=== PATIENT | female | born 1950 | race Caucasian/White ===

== ENCOUNTER → 2022-02-16 11:37 | Outpatient (BNVA) | payer MEDICARE, SELFPAY | PROVIDERS: Family Provider Registered Nurse; PCP Family Medicine; Visit Provider Family Medicine | DX: E11.8 Type 2 diabetes mellitus with unspecified complications (principal) | CPT/HCPCS: 83036 ==

== ENCOUNTER → 2022-06-07 07:51 | Outpatient (BNVA) | payer MEDICARE, SELFPAY | PROVIDERS: Family Provider Registered Nurse; PCP Family Medicine; Visit Provider Family Medicine | DX: E11.9 Type 2 diabetes mellitus without complications (principal); Z51.81 Encounter for therapeutic drug level monitoring; R25.2 Cramp and spasm; Z13.220 Encounter for screening for lipoid disorders | CPT/HCPCS: 80053; 80061; 83036; 83735; 85025 ==

== ENCOUNTER → 2022-10-07 10:46 | Outpatient (BNVA) | payer MEDICARE, SELFPAY | PROVIDERS: Family Provider Registered Nurse; PCP Family Medicine; Visit Provider Family Medicine | DX: Z51.81 Encounter for therapeutic drug level monitoring (principal); E11.9 Type 2 diabetes mellitus without complications; I10 Essential (primary) hypertension; M26.609 Unspecified temporomandibular joint disorder, unspecified side; Z13.220 Encounter for screening for lipoid disorders | CPT/HCPCS: 80053; 80061; 83036; 85025 ==

== ENCOUNTER → 2023-01-10 08:00 | Outpatient (BNVA) | payer MEDICARE, SELFPAY | PROVIDERS: Family Provider Registered Nurse; PCP Family Medicine; Visit Provider Podiatrist Foot & Ankle Surgery | DX: I73.9 Peripheral vascular disease, unspecified (principal); L84 Corns and callosities; E11.9 Type 2 diabetes mellitus without complications; B35.1 Tinea unguium; M20.41 Other hammer toe(s) (acquired), right foot; M20.42 Other hammer toe(s) (acquired), left foot; Z79.4 Long term (current) use of insulin | CPT/HCPCS: 11056; 99204 ==

== ENCOUNTER → 2023-01-13 09:50 | Outpatient (BNVA) | payer MEDICARE, SELFPAY | PROVIDERS: Family Provider Registered Nurse; PCP Family Medicine; Visit Provider Family Medicine | DX: E11.9 Type 2 diabetes mellitus without complications (principal); Z51.81 Encounter for therapeutic drug level monitoring; E78.5 Hyperlipidemia, unspecified; I10 Essential (primary) hypertension; R60.9 Edema, unspecified; Z63.0 Problems in relationship with spouse or partner | CPT/HCPCS: 80053; 83036; 83735; 85025 ==

== ENCOUNTER → 2023-02-28 11:28 | Outpatient (BNVA) | payer MEDICARE, SELFPAY | PROVIDERS: Family Provider Registered Nurse; PCP Family Medicine; Visit Provider Podiatrist Foot & Ankle Surgery | DX: M21.611 Bunion of right foot (principal); M21.612 Bunion of left foot; M20.41 Other hammer toe(s) (acquired), right foot; M20.42 Other hammer toe(s) (acquired), left foot; E11.9 Type 2 diabetes mellitus without complications; I73.9 Peripheral vascular disease, unspecified; Z79.4 Long term (current) use of insulin | CPT/HCPCS: 99212 ==

== ENCOUNTER → 2023-05-12 09:24 | Outpatient (BNVA) | payer MEDICARE, SELFPAY | PROVIDERS: Family Provider Registered Nurse; PCP Family Medicine; Visit Provider Family Medicine | DX: Z51.81 Encounter for therapeutic drug level monitoring (principal); E78.5 Hyperlipidemia, unspecified; E55.9 Vitamin D deficiency, unspecified; E53.8 Deficiency of other specified B group vitamins; I10 Essential (primary) hypertension; E11.9 Type 2 diabetes mellitus without complications; Z13.220 Encounter for screening for lipoid disorders; R26.89 Other abnormalities of gait and mobility | CPT/HCPCS: 80053; 80061; 82306; 82607; 85025 ==

== ENCOUNTER → 2023-05-16 08:08 | Outpatient (BNVA) | payer MEDICARE, SELFPAY | PROVIDERS: Family Provider Registered Nurse; PCP Family Medicine; Visit Provider Podiatrist Foot & Ankle Surgery | DX: M21.611 Bunion of right foot (principal); M21.612 Bunion of left foot; M20.41 Other hammer toe(s) (acquired), right foot; M20.42 Other hammer toe(s) (acquired), left foot; E11.9 Type 2 diabetes mellitus without complications; I73.9 Peripheral vascular disease, unspecified; L60.9 Nail disorder, unspecified; Z79.4 Long term (current) use of insulin | CPT/HCPCS: 11721 ==

== ENCOUNTER → 2023-06-10 08:12 | Outpatient (BNVA) | payer MEDICARE, SELFPAY | PROVIDERS: Family Provider Registered Nurse; PCP Family Medicine; Visit Provider Family Medicine | DX: E11.9 Type 2 diabetes mellitus without complications (principal) | CPT/HCPCS: 83036 ==

== ENCOUNTER → 2023-07-18 07:46 | Outpatient (BNVA) | payer MEDICARE, SELFPAY | PROVIDERS: Family Provider Registered Nurse; PCP Family Medicine; Visit Provider Podiatrist Foot & Ankle Surgery | DX: E11.8 Type 2 diabetes mellitus with unspecified complications (principal); M21.611 Bunion of right foot; M21.612 Bunion of left foot; M20.41 Other hammer toe(s) (acquired), right foot; M20.42 Other hammer toe(s) (acquired), left foot; I73.9 Peripheral vascular disease, unspecified; L60.3 Nail dystrophy; L84 Corns and callosities; Z79.4 Long term (current) use of insulin | CPT/HCPCS: 11056; 11721 ==

== ENCOUNTER → 2023-07-22 09:37 | Outpatient (BNVA) | payer MEDICARE, SELFPAY | PROVIDERS: Family Provider Registered Nurse; PCP Family Medicine; Visit Provider Family Medicine | DX: E03.9 Hypothyroidism, unspecified (principal); E11.9 Type 2 diabetes mellitus without complications | CPT/HCPCS: 84439; 84443; 84681 ==

== ENCOUNTER → 2023-10-31 12:15 | Outpatient (BNVA) | payer MEDICARE, SELFPAY | PROVIDERS: Family Provider Registered Nurse; PCP Family Medicine; Visit Provider Podiatrist Foot & Ankle Surgery | DX: B35.1 Tinea unguium (principal); E11.9 Type 2 diabetes mellitus without complications; I73.9 Peripheral vascular disease, unspecified; Z79.4 Long term (current) use of insulin | CPT/HCPCS: 11721 ==

== ENCOUNTER 2023-11-23 13:38 | Outpatient (CLI) | payer MEDICARE, SELFPAY ==
--- NOTE | 2023-11-23 13:42 | XR_ITS ---
WS: [id number] Examination: XR hip LT 2-3V wo/w pel* [id number] Reason for Exam: Fall, left hip pain Date: November 23, 2023 Comparison: None. Findings: The bone density is maintained. There is no destruction. There is no fracture or dislocation. The chong nt space is maintained Impression: No displaced fractures identified.
--- NOTE | 2023-11-23 13:42 | XR_ITS ---
WS: [id number] Examination: XR lumbar spine 2-3V* [id number] Reason for Exam: Lower back pain, fall Date: November 23, 2023 Comparison: None. Findings: The pedicles and the bone density are intact There is no dominant anterior wedging or compression. There is no subluxation There are dominant degenerative changes at L5-S1 with the space loss along with anterior and posterio r osteophytes. Otherwise mild spondylosis is noted Impression: There are degenerative changes of the lumbar disc which is dominant at L5-S1.
== END 2023-11-23 13:39 | disposition home or self-care (01) ==
LOC: RAD 13:40
PROVIDERS: Family Provider Registered Nurse; PCP Family Medicine; Visit Provider Family Medicine
DX: M25.552 Pain in left hip (principal); M54.50 Low back pain, unspecified; M47.816 Spondylosis without myelopathy or radiculopathy, lumbar region
CPT/HCPCS: 72100; 73502

== ENCOUNTER → 2023-12-15 07:59 | Outpatient (BNVA) | payer MEDICARE, SELFPAY | PROVIDERS: Family Provider Registered Nurse; PCP Family Medicine; Visit Provider Family Medicine | DX: E11.9 Type 2 diabetes mellitus without complications (principal); E55.9 Vitamin D deficiency, unspecified | CPT/HCPCS: 80053; 80061; 82306; 83036; 85025 ==

== ENCOUNTER 2023-12-30 07:29 | Outpatient (CLI) | payer MEDICARE, SELFPAY ==
--- NOTE | 2023-12-30 07:45 | US_ITS ---
WS: [id number] RIGHT UPPER QUADRANT ULTRASOUND HISTORY: Right upper quadrant pain - Please do a RUQ US COMPARISON: None available. Liver: 15.3 cm in length. Normal size liver. Echogenic liver with increased attenuation. No mass iden tified. No bile duct dilatation. Portal Vein: Normal hepatopetal flow with monophasic waveform. Gallbladder: Prior cholecystectomy. CBD: 0.3 cm Pancreas: Poorly visualized but echogenic pancreas. Right kidney: 10.6 cm in length. Cortical cyst upper pole measures 1.4 x 1.4 x 1.0 cm. No solid mass. Aorta and IVC: Unremarkable abdominal aorta and IVC. No ascites. US/US abdomen limited [id number] IMPRESSION: 1. Status post cholecystectomy. 2. No bile duct dilatation. 3. Normal size liver with changes of hepatic steatosis. 4. Simple cyst upper pole RIGHT kidney. Cyst has very slightly increased in si ze since the prior ultrasound from 2010.
== END 2023-12-30 07:30 | disposition home or self-care (01) ==
LOC: RAD 07:29
PROVIDERS: Family Provider Registered Nurse; PCP Family Medicine; Visit Provider Family Medicine
DX: N28.1 Cyst of kidney, acquired (principal); R10.11 Right upper quadrant pain; G89.29 Other chronic pain
CPT/HCPCS: 76705

== ENCOUNTER → 2024-01-03 13:20 | Outpatient (BNVA) | payer MEDICARE, SELFPAY | PROVIDERS: Family Provider Registered Nurse; PCP Family Medicine; Visit Provider Podiatrist Foot & Ankle Surgery | DX: B35.1 Tinea unguium (principal); R60.9 Edema, unspecified; I73.9 Peripheral vascular disease, unspecified; E11.69 Type 2 diabetes mellitus with other specified complication; Z79.4 Long term (current) use of insulin | CPT/HCPCS: 11721 ==

== ENCOUNTER 2024-02-07 11:39 | Emergency (ER) | payer MEDICARE, SELFPAY ==
[2024-02-07 11:52] VITALS: BP 257/114; PULSE 89; TEMP 36.7; O2SAT 91; BMI 26.5
--- NOTE | 2024-02-07 11:52 | ECG_ITS ---
[facility] Test Date: 2024-02-07 Pat Name: Josey Flores Department: Room: Gender: Female Blood [employer] Credit Clerk: : [id number] Requested By: Jeramie Chambers Order Number: [id number] Reading MD: Travis Armijo M.D. Measurements Intervals [place] Rate: 87 P: 31 VA: 139 QRS: 24 QRSD: 87 T: 72 QT: 374 QTc: 452 Interpretive Statements SINUS RHYTHM NONSPECIFIC T-WAVE ABNORMALITY No previous ECG available for comparison Electronically Signed On 02-10-2024 13:22:31 CDT by Travis Armijo M.D. [id number]
--- NOTE | 2024-02-07 11:53 | XRR_ITS ---
PROCEDURE INFORMATION: Exam: XR Right Humerus Exam date and time: 02/07/2024 12:08 PM Age: 73 years old Clinical indication: Injury or trauma; Fall; Blunt trauma (contusions or hematomas); Arm, upper; Right TECHNIQUE: Imaging protocol: Radiologic exam of the right humerus. Views: 2 or more views. COMPARISON: CR XR shoulder RT min 2V* [id number] 02/07/2024 12:05 PM FINDINGS: Bones/joints: Comminuted minimally displaced fracture of the humeral head. Interval reduction of previously seen probable anterior dislocation. No additional fractures are seen. Soft tissues: Normal. XR/[place] [id number] IMPRESSION: 1. Comminuted minimally displaced fracture of the humeral head. 2. Interval reduction of previously seen probable anterior dislocation.
--- NOTE | 2024-02-07 11:53 | XRR_ITS ---
PROCEDURE INFORMATION: Exam: XR Right Shoulder Exam date and time: 02/07/2024 12:05 PM Age: 73 years old Clinical indication: Injury or trauma; Fall; Blunt trauma (contusions or hematomas); Shoulder; Right TECHNIQUE: Imaging protocol: Radiologic exam of the right shoulder. Views: 2 or more views. COMPARISON: CR XR chest 1V [id number] 06/17/2018 10:41 AM FINDINGS: Bones/joints: Minimally displaced comminuted fracture of the humeral head with probable anterior dislocation. No additional fractures are seen. Soft tissues: Normal. XR/XR shoulder RT min 2V* [id number] IMPRESSION: Minimally displaced comminuted fracture of the humeral head with probable anterior dislocation.
--- NOTE | 2024-02-07 11:54 | ED_ITS ---
HPI - Extremity Injury (Upper) 2 General: Chief Complaint: Extremity Injury, Upper Stated Complaint: Fall Time Seen by Provider: 02/07/24 11:42 Source: patient Mode of arrival: ambulatory History of Present Illness: 73-year-old female presents to the emerg ency room with complaints of right upper arm and shoulder pain. She is a resident [facility] she had a mechanical ground-level fall and is complaining of pain in that area. She cannot really describe to me how she landed although she denies landing on an outstretched arm. She did not strike her head did not lose consciousness she is diabetic EMS that her blood sugar at 118. She did take her regular insulin this morning. She denies any other injury. MD complaint: injury to: right, shoulder and arm Other Extremity Injury: Right: arm and shoulder Handedness: right Place: other (long-term) Relieving factors: none Exacerbating factors: none Associated symptoms: Denies crepitus, foreign body sensation, neck pain, numbness or weakness in extremities Treatments prior to arrival: other (Right arm sling/shoulder immobilizer) Review of Systems 2 Const: Denies: fever(s) or chills Card: Denies: chest pain Resp: Denies: dyspnea GI: Denies: abdominal pain : Denies: dysuria, urinary frequency or urinary urgency Musc: Reports: joint pain (Right shoulder); Denies: neck pain Skin/Breast: Denies: rash Neuro: Denies: weakness in extremities PFSH ED 2 PFSH: Medical History Hypertension Diabetes mellitus Surgical History History of right knee surgery Hx of rotator cuff surgery Left History of cholecystectomy H/O bilateral oophorectomy H/O: hysterectomy With BLO and removal of cervix Family History Mother Colon cancer Hypertension Sister Colon cancer Hypertension Father Stroke CAD (coronary artery disease) Brother CAD (coronary artery disease) Social History Smoking and tobacco/nicotine status: never used tobacco/nicotine Alcohol intake: current Alcohol intake frequency: holidays/special occasions only Substance/Drug Use: never Marital status: Physical Exam 2 Const: GENERAL APPEARANCE: cooperative and comfortable O RIENTATION/CONSCIOUSNESS: Yes awake, Yes oriented to person, Yes oriented to place and Yes oriented to time HENMT: COMMON NORMALS: normocephalic, atraumatic and hearing grossly normal bilaterally HEAD & SCALP: normocephalic and atraumatic Resp: COMMON NORMALS: normal respiratory effort, No retractions, No use of accessory muscles and clear to auscultation bilaterally AUSCULTATION: clear to auscultation bilaterally Cardio: COMMON NORMALS: regular rate, regular rhythm and No murmurs present (Cardio) RATE: regular rate RHYTHM: regular rhythm GI: COMMON NORMALS: Soft to palpation and No hepatosplenomegaly present A USCULTATION: Yes normoactive bowel sounds PALPATION: Yes Soft to palpation, No Tenderness to palpation present (GI), No Guarding due to palpation present (GI) and Yes No hepatosplenomegaly present Extremity: OTHER: Examination extremities patient has no pain or discomfort with the lower extremities and the left upper extremity. No pain with palpation or range of motion there right elbow or wrist neurovascularly intact pain discomfort with palpation along the right clavicle and shoulder and upper humerus Limited exam due to pain pending x-rays Neuro: SENSORIUM/ORIENTATION: Yes oriented to person, Yes oriented to place and Yes oriented to time Skin: COMMON NORMALS: no rashes or lesions noted GENERAL SKIN EXAM: no rashes or lesions noted Course 2 Vital Signs: Vital signs: Vital Signs Temperature 98.0 F 02/07/24 11:52 Pulse Rate 80 02/07/24 14:13 Respiratory Rate 17 02/07/24 13:42 Blood Pressure 178/84 02/07/24 14:13 Pulse Oximetry 94 02/07/24 14:13 Oxygen Delivery Me thod Room Air 02/07/24 14:13 MDM - Extremity Injury (Upper) Medical Decision Making Humeral head fracture. On initial plain films is concerned about the possibility of anterior dislocation with a fracture. Reviewed both the shoulder and humerus fractures on 1 it appears there is a dislocation on the other it appears to be in good position CT was done which confirmed adequate positioning with the fracture and there is no dislocation. Will discharge patient home with pain medications and sling and set her up to see if orthopedics and follow-up Medical Records I reviewed the patient's medical records. Lab Data I reviewed the patient's lab results. 02/07/24 12:22 02/07/24 12:22 Radiology Impressions Humerus X-Ray 02/07/24 11:53 IMPRESSION: 1. Comminuted minimally displaced fracture of the humeral head. 2. Interval reduction of previously seen probable anterior dislocation. Shoulder X-Ray 02/07/24 11:53 IMPRESSION: Minimally displaced comminuted fracture of the humeral head with probable anterior dislocation. Shoulder CT 02/07/24 13:17 IMPRESSION: 1. Comminuted humeral head and neck fracture. 2. Inferior subluxation due to hemarthrosis but no anterior displacement of the humeral head. Laboratory Results WBC 8.35 10^3/uL (3.29-11.43) 02/07/24 12:22 RBC 4.34 10^6/uL (3.85-5.65) 02/07/24 12:22 Hgb 13.90 g/dL (11.27-16.99) 02/07/24 12:22 Hct 42.6 % (36-47) 02/07/24 12:22 MCV 98.2 fl (85-98) H 02/07/24 12:22 MCH 32.0 pg (27-33) 02/07/24 12:22 MCHC 32.6 g/dL (30-55) 02/07/24 12:22 RDW 13.1 % (12.1-15.1) 02/07/24 12:22 Plt Count 252 10^3/cmm (157-399) 02/07/24 12:22 MPV 10.6 fL (7.4-10.4) H 02/07/24 12:22 Neut % (Auto) 81.9 % 02/07/24 12:22 Lymph % (Auto) 10.8 % 02/07/24 12:22 [place] % (Auto) 5.6 % 02/07/24 12:22 Eos % (Auto) 0.7 % 02/07/24 12:22 Baso % (Auto) 0.4 % 02/07/24 12:22 Neut # (Auto) 6.84 10^3/uL (1.8-7.7) 02/07/24 12:22 Lymph # (Auto) 0.9 10^3/uL (0.8-4.8) 02/07/24 12:22 [place] # (Auto) 0.5 10^3/uL (0.2-0.9) 02/07/24 12:22 Eos # (Auto) 0.1 10^3/uL (0.0-0.8) 02/07/24 12:22 Baso # (Auto) 0.0 10^3/uL (0.0-0.1) 02/07/24 12:22 Nucleated RBC % (auto) 0 % 02/07/24 12:22 Nucleated RBCs # 0.0 /100WBC 02/07/24 12:22 Sodium 144 mmol/L (136-145) 02/07/24 12:22 Potassium 4.0 mmol/L (3.5-5.1) 02/07/24 12:22 Chloride 109 mmol/L (98-107) H 02/07/24 12:22 Carbon Dioxide 22 mmol/L (22-29) 02/07/24 12:22 Anion Gap 17.0 (5-19) 02/07/24 12:22 BUN 26 mg/dL (8-23) H 02/07/24 12:22 Creatinine 1.1 mg/dL (0.5-0.9) H 02/07/24 12:22 GFR Calculation Not Reportable 02/07/24 12:22 Glucose 110 mg/dL (65-115) 02/07/24 12:22 Calculated Osmolality 303 mOsm/kg (285-295) H 02/07/24 12:22 Calcium 9.3 mg/dL (8.5-10.5) 02/07/24 12:22 Total Bilirubin 0.3 mg/dL (0.15-1.2) 02/07/24 12:22 AST 14 U/L (0-32) 02/07/24 12:22 ALT 13 U/L (0-33) 02/07/24 12:22 Alkaline Phosphatase 75 U/L (35-105) 02/07/24 12:22 Total Protein 7.9 g/dL (6.6-8.7) 02/07/24 12:22 Albumin 4.1 g/dL (3.5-5.2) 02/07/24 12:22 Globulin 3.8 g/dL (1.3-4.6) 02/07/24 12:22 All radiology interpretation(s) finalized by discharge Discharge Plan Discharge Patient Disposition: Home Clinical Impression: Fracture of humeral head, right, closed, HTN (hypertension) Condition: Stable Prescriptions: New hydrocodone-acetaminophen 5-325 mg tablet 1 tab PO Q6H PRN (Reason: pain) Qty: 20 0RF amlodipine 10 mg tablet 10 mg PO DAILY Qty: 30 0RF No Action (DME) Manual wheelchair See Rx Instructions .Route .MEDSUPPLY Qty: 1 0RF Rx Instructions: As directed (DME) Foldable walker without wheels See Rx Instructions .Route .MEDSUPPLY Qty: 1 0RF Rx Instructions: As directed insulin glargine U-300 conc [Toujeo Max U-300 SoloStar] 300 unit/mL (3 mL) insulin pen 180 unit SUBCUT DAILY Qty: 18 6RF (DME) Lift chair See Rx Instructions .Route .MEDSUPPLY Qty: 1 0RF Rx Instructions: As directed to assist with standing aspirin 325 mg tablet 325 mg PO DAILY (DME) diabetic shoes with 3 inserts See Rx Instructions .Route .MEDSUPPLY Qty: 1 0RF Rx Instructions: As directed to the Shoe Beth enalapril maleate 10 mg tablet 10 mg PO DAILY Novolin R FlexPen 100 unit/mL (3 mL) insulin pen See Rx Instructions SUBCUT .QPM PRN (Reason: INCREASED BLOOD SUGAR) Rx Instructions: subcutaneously QPM; Glucose before meal: 150-200-1 Unit 201-250-2 U 251-300-3 U 301-350-4 U 351-400-5 U +401-6 units Discharge Orders: Discharge ED (Routine); Ordered 02/07/24 Ordered By: Jeramie Faustin Referrals: Zhang Tirado MD [Primary Care Provider] - Discharge Diet: Usual diet Discharge Activity: Limit activity as instructed Patient Instructions: Arm Fracture in Adults (ED), Chronic Hypertension (ED), Opioid Safety, Pain Management Activity Restrictions/Additional Instructions: Thank you for choosing [facility] for your healthcare needs today. It is very important that you follow up as instructed or that you return to the Emergency Department should you have concerns or if your condition changes or worsens in any way. You were seen in the emergency room with complaints of right hip arm pain after a fall. You have a proximal upper arm fracture (humerus). Recommend a sling and pain medications for these will set you up to see orthopedics as an outpatient for continuing following. Typically these do not require surgery but do require remaining in the sling for the first few weeks. Coding Level of Care Code ED [employer]or for Adam Loja
[2024-02-07 12:27] LABS: Basophils % 0.4 %; Eosinophils # 0.1 10^3/uL (0.0-0.8); Eosinophils % 0.7 %; Hematocrit 42.6 % (36-47); Lymphocytes # 0.9 10^3/uL (0.8-4.8); Lymphocytes % 10.8 %; Mean Corpuscular HGB Conc 32.6 g/dL (30-55); Mean Corpuscular Volume 98.2 fl (85-98); Mean Platelet Volume 10.6 fL (7.4-10.4); Monocytes # 0.5 10^3/uL (0.2-0.9); Monocytes % 5.6 %; Neutrophils # 6.84 10^3/uL (1.8-7.7); Neutrophils % 81.9 %; Nucleated Red Blood Cells % 0 %; Platelet Count 252 10^3/cmm (157-399); Red Blood Count 4.34 10^6/uL (3.85-5.65); Red Cell Distribution Width 13.1 % (12.1-15.1); White Blood Count 8.35 10^3/uL (3.29-11.43)
[2024-02-07 12:47] LABS: Alanine Aminotransferase 13 U/L (0-33); Albumin Level 4.1 g/dL (3.5-5.2); Alkaline Phosphatase 75 U/L (35-105); Aspartate Amino Transferase 14 U/L (0-32); Blood Urea Nitrogen 26 mg/dL (8-23); Calcium 9.3 mg/dL (8.5-10.5); Carbon Dioxide 22 mmol/L (22-29); Chloride 109 mmol/L (98-107); Creatinine Clr Calc Pharmacy 40.9182; Globulin 3.8 g/dL (1.3-4.6); Glucose 110 mg/dL (65-115); Osmolality Calculated 303 mOsm/kg (285-295); Sodium 144 mmol/L (136-145); Total Bilirubin 0.3 mg/dL (0.15-1.2); Total Protein 7.9 g/dL (6.6-8.7)
--- NOTE | 2024-02-07 13:09 | PC.NURSE ---
PT REFUSING BLOOD PRESSURE MEDICATIONS. PT STATES SHE HAS AN ALLERGY TO BLOOD PRESSURE MEDICATIONS AND DOES NOT WISH TO RECEIVE THEM. PT STATES SHE WILL TAKE HER ENALATPRIL WHEN SHE GETS HOME. PT EDUCATED ON THE RISKS OF BEING HYPERTENSIVE AND THE NEED FOR MEDICATION. PT STILL DECLINED. PT BLOOD PRESSURE CURRENTLY 259/124. DR. FUENTES NOTIFIED, NO NEW ORDERS AT THIS TIME.
--- NOTE | 2024-02-07 13:17 | CT_ITS ---
WS: [id number] CT RIGHT SHOULDER, NONCONTRAST HISTORY: fracture possible dislocation Technique: All [facility] scans at [facility] use at least one of these dose optimization techniques: automated exposure control; mA and/or kV adjustment per patient size (includes targeted exams where dose is matched to clinical indication); or iterative reconstruction. DLP: 292.80 mGy.cm COMPARISON: Radiograph 02/07/2024 Comminuted fracture involving the humeral head with extension into the humeral neck. Multiple fractur e fragments surrounding the humeral head but no significant displacement. There is one slightly displ aced fracture fragment from the humeral head which sits just inferior to the glenoid. There is no dis location. There is mild inferior subluxation due to intra-articular hemarthrosis. Normal AC joint. Normal glenoid. Visualized ribs are negative. CT/CT shoulder RT wo con* [id number] IMPRESSION: 1. Comminuted humeral head and neck fracture. 2. Inferior subluxation due to hemarthrosis but no anterior displacement of th e humeral head.
[2024-02-07 13:42] VITALS: RESP 17
[2024-02-07] MEDS: labetalol 5 mg/mL SDV 20mL 10 MG IVP (13:42)
[2024-02-07] MEDS: fentaNYL 50 mcg/mL INJ 2mL IVP (13:42)
[2024-02-07] MEDS: hyDRALAzine 20 mg/mL INJ 1 mL IVP (13:43)
[2024-02-07 14:13] VITALS: BP 178/84; PULSE 80; O2SAT 94
--- NOTE | 2024-02-09 07:33 | DCPLANNER ---
message sent to ortho for er f/u
== END 2024-02-07 15:10 | disposition home or self-care (01) ==
PROVIDERS: Emergency Provider Family Medicine; PCP Family Medicine
DX: S42.291A Other displaced fracture of upper end of right humerus, initial encounter for closed fracture (principal); I10 Essential (primary) hypertension; Z79.82 Long term (current) use of aspirin; Z79.4 Long term (current) use of insulin; E11.9 Type 2 diabetes mellitus without complications; W18.39XA Other fall on same level, initial encounter; Y92.129 Unspecified place in nursing home as the place of occurrence of the external cause
CPT/HCPCS: 36415; 73030; 73060; 73200; 80053; 85025; 93005; 96374; 96375; 99285; J0360; J3010; J3490